=== PATIENT | female | born 1965 | race Caucasian/White ===

== ENCOUNTER 2019-02-03 19:33 | Inpatient (IN) | payer MEDICAID ==
[~2019-02-03] VITALS: Ht 157.5 cm; Wt 68.5 kg
[2019-02-03 19:59] VITALS: Ht 157.5 cm; Wt 68.5 kg
[2019-02-03 21:06] LABS: BASOPHIL % 0.7 % (0-2); PLATELET COUNT 269 x10^3mcL (130-400); RED CELL DISTRIBUTION WIDTH 19.4 % (11.5-14.5)
[2019-02-03 21:16] LABS: CALCIUM 8.9 mg/dL (8.5-10.1); CHLORIDE SERUM 100 mmol/L (98-107); CREATININE SERUM 0.7 mg/dL (0.6-1.0); GFR1 > 60 mL/min; GLUCOSE SERUM 293 mg/dL (74-106); POTASSIUM SERUM 4.2 mmol/L (3.5-5.1); SODIUM SERUM 135 mmol/L (136-145)
[2019-02-03 21:20] LABS: ALBUMIN 3.5 g/dL (3.4-5.0); ALKALINE PHOSPHATASE 109 U/L (46-116); ALT/SGPT 18 U/L (14-59); AST/SGOT 15 U/L (15-37); BILIRUBIN TOTAL 0.3 mg/dL (0.20-1.00); TOTAL PROTEIN, SERUM 7.7 g/dL (6.4-8.2)
[2019-02-03] MEDS ORDERED: LANTUS SOLOS100 U/M1 SQ ×2 (23:03→23:43)
[2019-02-03] MEDS ORDERED: ATENOLOL25 MG PO (23:03)
[2019-02-03 23:39] LABS: microscopic required? NO
[2019-02-03] MEDS ORDERED: LIPI10 PO (23:48)
[2019-02-03 23:56] LABS: urine erythrocyte NEGATIVE (NEGATIVE)
[2019-02-04 00:11] VITALS: BP 124/64
[2019-02-04 00:19] LABS: CHOLESTEROL/HDL RATIO 4.5; MAGNESIUM 1.9 mg/dL (1.8-2.4); PHOSPHOROUS 3.9 mg/dL (2.5-4.9)
[2019-02-04 01:17] LABS: AMPHETAMINE QUAL UR NONE DETECTED (See below)
[2019-02-04 05:23] VITALS: BP 126/53
[2019-02-04 07:00] LABS: CALCIUM 8.5 mg/dL (8.5-10.1); CARBON DIOXIDE 27.5 mmol/L (21-32); CHLORIDE SERUM 107 mmol/L (98-107); CREATININE SERUM 0.6 mg/dL (0.6-1.0); GFR1 > 60 mL/min; GLUCOSE SERUM 202 mg/dL (74-106); MAGNESIUM 1.8 mg/dL (1.8-2.4); PHOSPHOROUS 4.1 mg/dL (2.5-4.9); POTASSIUM SERUM 4.2 mmol/L (3.5-5.1); SODIUM SERUM 143 mmol/L (136-145)
[2019-02-04 07:47] LABS: BASOPHIL % 0.7 % (0-2); PLATELET COUNT 284 x10^3mcL (130-400)
[2019-02-04 07:51] LABS: RED CELL DISTRIBUTION WIDTH 19.5 % (11.5-14.5); rbc morphology (normal/abnorm) ABNORMAL (NORMAL)
[2019-02-04 09:52] VITALS: BP 148/58
[2019-02-04 13:23] VITALS: BP 156/67
[2019-02-04 17:40] VITALS: BP 155/55
[2019-02-04 20:38] VITALS: BP 142/63
[2019-02-05 05:48] VITALS: BP 157/62
[2019-02-05 07:14] LABS: BASOPHIL % 0.5 % (0-2); PLATELET COUNT 241 x10^3mcL (130-400); RED CELL DISTRIBUTION WIDTH 19.2 % (11.5-14.5)
[2019-02-05 07:25] LABS: CALCIUM 8.4 mg/dL (8.5-10.1); CARBON DIOXIDE 27.4 mmol/L (21-32); CHLORIDE SERUM 107 mmol/L (98-107); CREATININE SERUM 0.5 mg/dL (0.6-1.0); GFR1 > 60 mL/min; GLUCOSE SERUM 242 mg/dL (74-106); SODIUM SERUM 138 mmol/L (136-145)
[2019-02-05 08:54] VITALS: BP 143/65
[2019-02-05 12:04] VITALS: BP 161/66
[2019-02-05 16:45] VITALS: BP 144/55
[2019-02-05 20:41] VITALS: BP 148/68
[2019-02-06 06:19] VITALS: BP 144/62
[2019-02-06 06:42] LABS: CALCIUM 8.7 mg/dL (8.5-10.1); CARBON DIOXIDE 26.5 mmol/L (21-32); CHLORIDE SERUM 104 mmol/L (98-107); CREATININE SERUM 0.5 mg/dL (0.6-1.0); GFR1 > 60 mL/min; GLUCOSE SERUM 177 mg/dL (74-106); POTASSIUM SERUM 4.1 mmol/L (3.5-5.1); SODIUM SERUM 138 mmol/L (136-145)
[2019-02-06 06:55] LABS: BASOPHIL % 0.4 % (0-2); PLATELET COUNT 258 x10^3mcL (130-400)
[2019-02-06 06:57] LABS: RED CELL DISTRIBUTION WIDTH 18.9 % (11.5-14.5)
[2019-02-06 08:33] VITALS: BP 163/63
[2019-02-06 12:43] VITALS: BP 159/59
[2019-02-06 13:56] VITALS: BP 159/59
== END 2019-02-06 15:25 | disposition home or self-care (01) | DRG 47 ==
LOC: ED 19:33 → DU 22:34
PROVIDERS: Emergency Medicine; General Practice; ADMIT Internal Medicine
DX: G45.9 Transient cerebral ischemic attack, unspecified (principal); E11.65 Type 2 diabetes mellitus with hyperglycemia; E87.1 Hypo-osmolality and hyponatremia; I16.0 Hypertensive urgency; E78.5 Hyperlipidemia, unspecified; Z79.4 Long term (current) use of insulin; Z68.27 Body mass index [BMI] 27.0-27.9, adult
CPT/HCPCS: 82962; 83880; 87046; 87046-59; J1815; J7030; Q0092

== ENCOUNTER 2019-03-11 13:02 | Emergency (ER) | payer MEDICAID ==
[~2019-03-11] VITALS: Ht 152.4 cm; Wt 73.9 kg
[~2019-03-11 13:02] MED LIST: ATENOLOL25 MG PO; LANTUS SOLOS100 U/M1 SQ; LIPI10 PO
[2019-03-11 13:06] VITALS: Ht 152.4 cm; Wt 73.9 kg
[2019-03-11 14:47] LABS: BASOPHIL % 0.4 % (0-2); PLATELET COUNT 305 x10^3mcL (130-400)
[2019-03-11 14:48] LABS: RED CELL DISTRIBUTION WIDTH 19.5 % (11.5-14.5)
[2019-03-11 14:57] LABS: CALCIUM 8.9 mg/dL (8.5-10.1); CARBON DIOXIDE 27.1 mmol/L (21-32); CHLORIDE SERUM 104 mmol/L (98-107); CREATININE SERUM 0.5 mg/dL (0.6-1.0); GFR1 > 60 mL/min; GLUCOSE SERUM 117 mg/dL (74-106); POTASSIUM SERUM 3.9 mmol/L (3.5-5.1); SODIUM SERUM 139 mmol/L (136-145)
[2019-03-11 14:59] LABS: ALBUMIN 3.6 g/dL (3.4-5.0); ALKALINE PHOSPHATASE 91 U/L (46-116); ALT/SGPT 22 U/L (14-59); AST/SGOT 15 U/L (15-37); BILIRUBIN TOTAL 0.34 mg/dL (0.20-1.00); CHOLESTEROL 195 mg/dL (<200); TOTAL PROTEIN, SERUM 7.6 g/dL (6.4-8.2)
[2019-03-11 15:47] VITALS: BP 166/75
== END 2019-03-11 15:47 | disposition home or self-care (01) ==
LOC: ED 13:02
PROVIDERS: Specialist
DX: R00.2 Palpitations (principal); E11.9 Type 2 diabetes mellitus without complications; I10 Essential (primary) hypertension; R20.2 Paresthesia of skin
CPT/HCPCS: 82962; G0480; J7030; Q0092